=== PATIENT | male | born 1985 | race African-American/Black ===

== ENCOUNTER 2018-01-25 20:20 | Emergency (ER) | payer BC ==
[~2018-01-25] VITALS: Ht 177.8 cm; Wt 97.5 kg
--- NOTE | 2018-01-25 21:55 | Diagnostic Imaging Report ---
Exam: AP view of the chest and left rib series Indication: Fall, left rib pain Comparison: None Findings: Normal appearance of the heart, lungs, bones and soft tissues. Impression: Normal appearance of the chest No evidence of a rib fracture. Signed by: Dr. Carrie Conti M.D. on 01/25/2018 9:51 PM
[2018-01-25 23:30] VITALS: BP 135/103
== END 2018-01-26 | disposition home or self-care (01) ==
LOC: ER 20:20
DX: R07.89 Other chest pain (principal); S20.212A Contusion of left front wall of thorax, initial encounter; Y93.61 Activity, american tackle football
CPT/HCPCS: 71101; 99283